=== PATIENT | male | born 1960 | race Caucasian/White ===

== ENCOUNTER 2020-05-26 13:53 | Inpatient (IN) | payer BC ==
--- NOTE | 2020-05-26 14:28 | BHS.RME ---
Substance Use & Tx History - Substance Use History Alcohol Substance amount: one quart Frequency of use: Daily Substance route: Oral Date of Last Use: 05/23/20 Nicotine Substance amount: one pack Frequency of use: Daily Substance route: Smoking Date of Last Use: 05/26/20 - Last Treatment Date of last treatment: one year ago: [facility] Treatment type: Substance Use Disorder (JESUS) Where was last treatment: Detox Physical/Psych/Mental Status - Behavior General Behavior: Decreased activity Eye Contact: Normal - Cooperativeness Cooperativeness: Cooperative - Thinking Thought Processes: Tight Thought content: Future oriented - Physical Health Problems Is patient presently having any pain?: No Does patient presently have any injuries (include location): No Does patient currently have a fever: No CIWA Nausea/Vomitin Muscle Tremors: 4-Moderate,w/Arms Extend Anxiety: 3 Agitation: 1-Slight > Activity Paroxysmal Sweats: No Perspiration Orientation: 2-Disoriented Date<2 days Tacttile Disturbances: 0-None Auditory Disturbances: 0-None Visual Disturbances: 0-None Headache: 0-None Present CIWA-Ar Total Score: 12
[2020-05-26 14:41] VITALS: BMI 16.1
--- NOTE | 2020-05-26 15:04 | HP ---
CIWA Score Nausea/Vomitin Muscle Tremors: 4-Moderate,w/Arms Extend Anxiety: 3 Agitation: 1-Slight > Activity Paroxysmal Sweats: No Perspiration Orientation: 2-Disoriented Date<2 days Tacttile Disturbances: 0-None Auditory Disturbances: 0-None Visual Disturbances: 0-None Headache: 0-None Present CIWA-Ar Total Score: 12 - Admission Criteria OASAS Guidelines: Admission for Medically Managed Detox: Requires at least one of the followin. CIWA greater than 12 2. Seizures within the past 24 hours 3. Delirium tremens within the past 24 hours 4. Hallucinations within the past 24 hours 5. Acute intervention needed for co occurring medical disorder 6. Acute intervention needed for co occurring psychiatric disorder 7. Severe withdrawal that cannot be handled at a lower level of care (continued vomiting, continued diarrhea, abnormal vital signs) requiring intravenous medication and/or fluids 8. Admitting History and Physical - Smoking History Smoking history: Current every day smoker Have you smoked in the past 12 months: Yes Aproximately how many cigarettes per day: 20 Admission ROS [facility] Chief Complaint: alcohol detox Allergies/Adverse Reactions: Allergies Allergy/AdvReac Type Severity Reaction Status Date / Time pollen extracts Allergy Intermediate Difficulty Verified 05/26/20 14:42 Breathing History of Present Illness: Patient is a 59 y/o male with no past medical history who presents for detox from alcohol. Patient started drinking in his late teens, patient last drink was three days ago. Patient typically drinks a quart of vodka daily. Patient denies seizures, possibly has blacked out from alcohol, Needs an eye cafeteria helper. Patient smokes 1 pack of cigarettes a day. Patient has done rehab ~5 times in the past, was sober for 10 years at one point. Substance Use & Tx History - Substance Use History Alcohol Substance amount: one quart Frequency of use: Daily Substance route: Oral Date of Last Use: 05/23/20 Nicotine Substance amount: one pack Frequency of use: Daily Substance route: Smoking Date of Last Use: 05/26/20 - Last Treatment Date of last treatment: one year ago: [facility] Treatment type: Substance Use Disorder (JESUS) Where was last treatment: Detox [facility]: plate in chin psych: none Patient is admitted for alcohol detox with a CIWA of 12. - Ebola screening Have you traveled outside of the country in the last 21 days: No Have you had contact with anyone from an Ebola affected area: No Have you been sick,other than usual withdrawal symptoms: No Do you have a fever: No - Review of Systems Constitutional: Other (denies: chills and fever) EENT: denies: Blurred Vision, Double Vision, Tinnitus Respiratory: denies: Cough, Shortness of Breath, Wheezing Cardiac: denies: Chest Pain, Chest Tightness GI: reports: Diarrhea. denies: Constipated, Nausea, Vomiting : denies: Burning Musculoskeletal: denies: Back Pain, Muscle Pain Integumentary: denies: Bruising Neuro: denies: Headache, Numbness, Tingling, Dizziness Endocrine: denies: Unexplained Weight Gain Hematology: denies: Anemia Psychiatric: reports: Anxious Patient History - Patient Medical History Hx Asthma: No Hx Cardiac Disorders: No Hx Diabetes: No Hx Gastrointestinal Disorders: No Hx Sexually Transmitted Disorders: No Hx Renal Disease (ESRD): No - Patient Surgical History Past Surgical History: Yes Hx Neurologic Surgery: No Hx Cataract Extraction: No Hx Cardiac Surgery: No Hx Lung Surgery: No Hx Breast Surgery: No Hx Breast Biopsy: No Hx Abdominal Surgery: No Hx Appendectomy: No Hx Cholecystectomy: No Hx Genitourinary Surgery: No Hx Section: No Hx Orthopedic Surgery: No - PPD History Previous Implant?: No Documented Results: Negative w/o proof - Smoking Cessation Smoking history: Current every day smoker Have you smoked in the past 12 months: Yes Aproximately how many cigarettes per day: 20 Cigars Per Day: 0 Hx Chewing Tobacco Use: No Initiated information on smoking cessation: Yes 'Breaking Loose' booklet given: 05/26/20 - Substances abused Alcohol Substance route: Oral Frequency: Daily Amount used: quart of vodka Age of first use: 17 Date of last use: 05/23/20 Admission Physical Exam BHS - Vital Signs Vital Signs: Vital Signs - 24 hr 05/26/20 05/26/20 14:39 14:44 Temperature 97.7 F 97.7 F Pulse Rate 114 H 114 H Respiratory 16 16 Rate Blood Pressure 149/89 149/89 - Physical General Appearance: Yes: No Apparent Distress, Thin HEENTM: Yes: Hearing grossly Normal, Normocephalic Respiratory: Yes: Chest Non-Tender, Decreased Breath Sounds, No Respiratory Distress Neck: Yes: Within Normal Limits Cardiology: Yes: Within Normal Limits, Regular Rhythm, Regular Rate Abdominal: Yes: Non Tender, Flat, Soft Genitourinary: Yes: Within Normal Limits Back: Yes: Normal Inspection Musculoskeletal: Yes: full range of Motion, Gait Steady Extremities: Yes: Normal Range of Motion, Non-Tender Neurological: Yes: Fully Oriented, Normal Mood/Affect, Normal Response Integumentary: Yes: Normal Color - Diagnostic (1) Alcohol dependence with withdrawal Current Visit: Yes Status: Acute (2) Nicotine dependence Current Visit: Yes Status: Acute Cleared for Admission S - Detox or Rehab [facility] Level of Care: Medically Managed Detox Regimen/Protocol: Librium Breathalyzer - Breathalyzer Breathalyzer: 0 Vital Signs - Vital Signs Vital signs refused: No Temperature: 97.7 F Temperature source: Oral Pulse Rate: 114 Respiratory Rate: 16 Blood Pressure: 149/89 - Height Height: 5 ft 8 in - Weight Weight: 48.081 kg - BMI Body Mass Index (BMI): 16.1 Urine Drug Screen - Test Device Lot number: [id number] Expiration date: 12/18/21 - Control Is test valid?: Yes - Results Drug screen NEGATIVE: No Urine drug screen results: MTD-Methadone Inpatient Rehab Admission - Rehab Decision to Admit Inpatient rehab admission?: No
[2020-05-26] MEDS ORDERED: ONDANSETRON *ODT* 4 MG TABLET SL PRN (15:05)
[2020-05-26] MEDS ORDERED: MENTHOL/PHENOL 1 EACH UD MM PRN (15:05)
[2020-05-26] MEDS ORDERED: NICOTINE POLACRILEX 2 MG GUM BUC PRN (15:05)
[2020-05-26] MEDS ORDERED: IBUPROFEN 400 MG TABLET (FP) PO PRN (15:05)
[2020-05-26] MEDS ORDERED: ACETAMINOPHEN 325 MG TABLET (FP) PO PRN ×2 (15:05)
[2020-05-26] MEDS ORDERED: METHOCARBAMOL 500 MG TABLET PO PRN (15:05)
[2020-05-26] MEDS ORDERED: chlordiazePOXIDE HCL 25 MG CAPSULE PO PRN (15:05)
[2020-05-26] MEDS ORDERED: BISMUTH SUBSALICYLATE 262 MG/15 ML BTL PO PRN (15:05)
[2020-05-26] MEDS ORDERED: MAGNESIUM HYDROX 2400MG/30ML ORAL SUSPENSION 30 ML CUP PO PRN (15:05)
[2020-05-26] MEDS ORDERED: MAGNESIUM CITRATE 300 ML BOTTLE PO PRN (15:05)
[2020-05-26] MEDS ORDERED: MAG HYDROX/AL HYDROX/SIMETH 30 ML UNIT-DOSE CUP PO PRN (15:05)
[2020-05-26] MEDS: NICOTINE 21 MG/24 HOURS TOPICAL PATCH TD SCH (15:59)
[2020-05-26] MEDS: PRENATAL VITAMINS W/ FOLIC ACID TABLET (FP) PO SCH (16:01)
[2020-05-26] MEDS: chlordiazePOXIDE HCL 25 MG CAPSULE PO SCH ×2 (16:03→22:23)
[2020-05-26] MEDS: hydrOXYzine PAMOATE 25 MG CAPSULE (FP) PO SCH ×2 (17:34→22:23)
[2020-05-26] MEDS: THIAMINE HCL 100 MG TABLET (FP) PO SCH (22:23)
--- NOTE | 2020-05-26 22:45 | PN ---
BHS Progress Note Note: Vital Signs - 24 hr 05/26/20 05/26/20 05/26/20 14:39 14:44 16:02 Temperature 97.7 F 97.7 F 98.0 F Pulse Rate 114 H 114 H 129 H Respiratory 16 16 18 Rate Blood Pressure 149/89 149/89 146/98 O2 Sat by Pulse 99 Oximetry (%) 05/26/20 05/26/20 05/26/20 17:21 17:29 21:07 Temperature 97.7 F 99.6 F 98.6 F Pulse Rate 114 H 125 H 116 H Respiratory 16 16 16 Rate Blood Pressure 149/89 118/79 112/80 O2 Sat by Pulse 97 97 Oximetry (%) pt w/ abnormal EKG RBBB asymptomatic : denies CP/ dizziness, falls . HR 90 prolonged QTc 486 ms . Pt vehemently denies Methadone use ( utox + MTD ) . Urine Drug Screen - Test Device Lot number: [id number] Expiration date: 12/18/21 - Control Is test valid?: Yes - Results Drug screen NEGATIVE: No Urine drug screen results: MTD-Methadone Advised pt to f/up w/ cardiology Pt verbalized understanding and thanked service writer advisor for information.
[2020-05-26] MEDS: MELATONIN 5 MG TABLETS PO SCH (23:00)
[2020-05-27] MEDS: chlordiazePOXIDE HCL 25 MG CAPSULE PO SCH ×4 (05:12→22:24)
--- NOTE | 2020-05-27 09:05 | PN ---
S CIWA - CIWA Score Nausea/Vomitin-Mild Nausea/No Vomiting Muscle Tremors: 3 Anxiety: 3 Agitation: 2 Paroxysmal Sweats: No Perspiration Orientation: 0-Oriented Tacttile Disturbances: 1-Very Mild Itch/Numbness Auditory Disturbances: 0-None Visual Disturbances: 0-None Headache: 2-Mild CIWA-Ar Total Score: 12 BHS Progress Note (SOAP) Subjective: alert,irritable,anxious,interrupted sleep tremor,aching pain Objective: 05/27/20 16:04 Vital Signs Temperature 97.8 F 05/27/20 12:45 Pulse Rate 123 H 05/27/20 12:45 Respiratory Rate 16 05/27/20 12:45 Blood Pressure 99/72 05/27/20 12:45 O2 Sat by Pulse Oximetry (%) 99 05/27/20 12:45 05/27/20 16:05 Laboratory Last Values WBC 6.3 K/mm3 (4.0-10.0) 05/27/20 08:00 RBC 3.07 M/mm3 (4.00-5.60) L 05/27/20 08:00 Hgb 10.6 GM/dL (11.7-16.9) L 05/27/20 08:00 Hct 32.2 % (35.4-49) L 05/27/20 08:00 MCV 104.8 fl (80-96) H 05/27/20 08:00 MCH 34.6 pg (25.7-33.7) H 05/27/20 08:00 MCHC 33.1 g/dl (32.0-35.9) 05/27/20 08:00 RDW 15.2 % (11.9-15.9) 05/27/20 08:00 Plt Count 229 K/MM3 (134-434) 05/27/20 08:00 MPV 9.1 fl (7.5-11.1) 05/27/20 08:00 Sodium 136 mmol/L (136-145) 05/27/20 08:00 Potassium 4.1 mmol/L (3.5-5.1) 05/27/20 08:00 Chloride 97 mmol/L (98-107) L 05/27/20 08:00 Carbon Dioxide 36 mmol/L (21-32) H 05/27/20 08:00 Anion Gap 4 MMOL/L (8-16) L 05/27/20 08:00 BUN 24.2 mg/dL (7-18) H 05/27/20 08:00 Creatinine 1.0 mg/dL (0.55-1.3) 05/27/20 08:00 Est GFR (CKD-EPI)AfAm 95.06 05/27/20 08:00 Est GFR (CKD-EPI)NonAf 82.02 05/27/20 08:00 Random Glucose 101 mg/dL (74-106) 05/27/20 08:00 Calcium 9.3 mg/dL (8.5-10.1) 05/27/20 08:00 Total Bilirubin 0.7 mg/dL (0.2-1) 05/27/20 08:00 AST 67 U/L (15-37) H 05/27/20 08:00 ALT 70 U/L (13-61) H 05/27/20 08:00 Alkaline Phosphatase 89 U/L (45-117) 05/27/20 08:00 Ammonia 31.70 umol/L (11-32) 05/27/20 14:00 Total Protein 6.9 g/dl (6.4-8.2) 05/27/20 08:00 Albumin 3.8 g/dl (3.4-5.0) 05/27/20 08:00 Syphilis Serology Non-reactive (NONREACTIVE) 05/27/20 08:00 COVID-19 (NIXON) Not detected (Not Detected) 05/26/20 15:15 Assessment: 05/27/20 16:05 withdrawal symptom Plan: continue detox librium regimen
--- NOTE | 2020-05-27 09:29 | EKG ---
Test Reason : Blood Pressure : / mmHG Vent. Rate : 090 BPM Atrial Rate : 090 BPM P-R Int : 168 ms QRS Dur : 142 ms QT Int : 398 ms P-R-T Axes : 061 100 062 degrees QTc Int : 486 ms NORMAL SINUS RHYTHM RIGHT BUNDLE BRANCH BLOCK ABNORMAL ECG NO PREVIOUS ECGS AVAILABLE Confirmed by MD ALEAH, NABEEL ([id number]) on 05/27/2020 9:28:48 AM Referred By: Confirmed By:NABEEL BULLARD MD
[2020-05-27] MEDS: PRENATAL VITAMINS W/ FOLIC ACID TABLET (FP) PO SCH (10:26)
[2020-05-27] MEDS: NICOTINE 21 MG/24 HOURS TOPICAL PATCH TD SCH (10:27)
[2020-05-27 10:36] LABS: ALBUMIN 3.8 g/dl (3.4-5.0); BILIRUBIN,TOTAL 0.7 mg/dL (0.2-1); BLOOD UREA NITROGEN 24.2 mg/dL (7-18); CALCIUM 9.3 mg/dL (8.5-10.1); POTASSIUM 4.1 mmol/L (3.5-5.1); TOT PROT 6.9 g/dl (6.4-8.2)
[2020-05-27 10:40] LABS: HEMATOCRIT 32.2 % (35.4-49); HEMOGLOBIN 10.6 GM/dL (11.7-16.9); MCH 34.6 pg (25.7-33.7); MCHC 33.1 g/dl (32.0-35.9); MEAN CELL VOLUME 104.8 fl (80-96); MEAN PLT VOLUME 9.1 fl (7.5-11.1); PLATELET COUNT 229 K/MM3 (134-434); RBC 3.07 M/mm3 (4.00-5.60); RDW 15.2 % (11.9-15.9); WHITE BLOOD COUNT 6.3 K/mm3 (4.0-10.0)
[2020-05-27] MEDS: THIAMINE HCL 100 MG TABLET (FP) PO SCH (22:24)
[2020-05-27] MEDS: MELATONIN 5 MG TABLETS PO SCH (22:25)
[2020-05-28] MEDS: chlordiazePOXIDE HCL 25 MG CAPSULE PO SCH ×4 (06:19→22:15)
[2020-05-28] MEDS: NICOTINE 21 MG/24 HOURS TOPICAL PATCH TD SCH (10:35)
[2020-05-28] MEDS: PRENATAL VITAMINS W/ FOLIC ACID TABLET (FP) PO SCH (10:35)
--- NOTE | 2020-05-28 12:37 | PN ---
[facility] CIWA - CIWA Score Nausea/Vomitin-Mild Nausea/No Vomiting Muscle Tremors: 1-None Visible, but Potter Anxiety: 2 Agitation: 2 Paroxysmal Sweats: No Perspiration Orientation: 0-Oriented Tacttile Disturbances: 0-None Auditory Disturbances: 0-None Visual Disturbances: 0-None Headache: 2-Mild CIWA-Ar Total Score: 8 S Progress Note (SOAP) Subjective: alert,irritable,anxious,interrupted sleep,aching pain in the bod and back Objective: 05/28/20 13:54 Vital Signs Temperature 96.8 F L 05/28/20 09:02 Pulse Rate 77 05/28/20 09:02 Respiratory Rate 20 05/28/20 09:02 Blood Pressure 98/56 L 05/28/20 09:02 O2 Sat by Pulse Oximetry (%) 97 05/28/20 09:02 Laboratory Last Values WBC 6.3 K/mm3 (4.0-10.0) 05/27/20 08:00 RBC 3.07 M/mm3 (4.00-5.60) L 05/27/20 08:00 Hgb 10.6 GM/dL (11.7-16.9) L 05/27/20 08:00 Hct 32.2 % (35.4-49) L 05/27/20 08:00 MCV 104.8 fl (80-96) H 05/27/20 08:00 MCH 34.6 pg (25.7-33.7) H 05/27/20 08:00 MCHC 33.1 g/dl (32.0-35.9) 05/27/20 08:00 RDW 15.2 % (11.9-15.9) 05/27/20 08:00 Plt Count 229 K/MM3 (134-434) 05/27/20 08:00 MPV 9.1 fl (7.5-11.1) 05/27/20 08:00 Sodium 136 mmol/L (136-145) 05/27/20 08:00 Potassium 4.1 mmol/L (3.5-5.1) 05/27/20 08:00 Chloride 97 mmol/L (98-107) L 05/27/20 08:00 Carbon Dioxide 36 mmol/L (21-32) H 05/27/20 08:00 Anion Gap 4 MMOL/L (8-16) L 05/27/20 08:00 BUN 24.2 mg/dL (7-18) H 05/27/20 08:00 Creatinine 1.0 mg/dL (0.55-1.3) 05/27/20 08:00 Est GFR (CKD-EPI)AfAm 95.06 05/27/20 08:00 Est GFR (CKD-EPI)NonAf 82.02 05/27/20 08:00 Random Glucose 101 mg/dL (74-106) 05/27/20 08:00 Calcium 9.3 mg/dL (8.5-10.1) 05/27/20 08:00 Total Bilirubin 0.7 mg/dL (0.2-1) 05/27/20 08:00 AST 67 U/L (15-37) H 05/27/20 08:00 ALT 70 U/L (13-61) H 05/27/20 08:00 Alkaline Phosphatase 89 U/L (45-117) 05/27/20 08:00 Ammonia 31.70 umol/L (11-32) 05/27/20 14:00 Total Protein 6.9 g/dl (6.4-8.2) 05/27/20 08:00 Albumin 3.8 g/dl (3.4-5.0) 05/27/20 08:00 Syphilis Serology Non-reactive (NONREACTIVE) 05/27/20 08:00 COVID-19 (NIXON) Not detected (Not Detected) 05/26/20 15:15 Assessment: 05/28/20 13:54 withdrawal symptom Plan: continue detox librium regimen
[2020-05-28] MEDS: THIAMINE HCL 100 MG TABLET (FP) PO SCH (22:15)
[2020-05-28] MEDS: MELATONIN 5 MG TABLETS PO SCH (22:15)
[2020-05-29] MEDS ORDERED: chlordiazePOXIDE HCL 10 MG CAPSULE PO PRN
[2020-05-29] MEDS: chlordiazePOXIDE HCL 10 MG CAPSULE PO SCH ×4 (06:40→22:24)
--- NOTE | 2020-05-29 10:32 | PN ---
BHS CIWA - CIWA Score Nausea/Vomitin-No Nausea/No Vomiting Muscle Tremors: 2 Anxiety: 1-Mildly Anxious Agitation: 1-Slight > Activity Paroxysmal Sweats: 1-Minimal Palms Moist Orientation: 0-Oriented Tacttile Disturbances: 0-None Auditory Disturbances: 0-None Visual Disturbances: 0-None Headache: 0-None Present CIWA-Ar Total Score: 5 BHS Progress Note (SOAP) Subjective: sweats shakes Objective: 05/29/20 10:31 Vital Signs Temperature 98.0 F 05/29/20 08:20 Pulse Rate 76 05/29/20 08:20 Respiratory Rate 16 05/29/20 08:20 Blood Pressure 111/65 05/29/20 08:20 O2 Sat by Pulse Oximetry (%) 94 L 05/29/20 05:19 Laboratory Tests 05/26/20 05/27/20 05/27/20 15:15 08:00 08:00 WBC 6.3 RBC 3.07 L Hgb 10.6 L Hct 32.2 L MCV 104.8 H MCH 34.6 H MCHC 33.1 RDW 15.2 Plt Count 229 MPV 9.1 Sodium 136 Potassium 4.1 Chloride 97 L Carbon Dioxide 36 H Anion Gap 4 L BUN 24.2 H Creatinine 1.0 Est GFR (CKD-EPI)AfAm 95.06 Est GFR (CKD-EPI)NonAf 82.02 Random Glucose 101 Calcium 9.3 Total Bilirubin 0.7 AST 67 H ALT 70 H Alkaline Phosphatase 89 Ammonia Total Protein 6.9 Albumin 3.8 Syphilis Serology COVID-19 (NIXON) Not detected 05/27/20 05/27/20 08:00 14:00 WBC RBC Hgb Hct MCV MCH MCHC RDW Plt Count MPV Sodium Potassium Chloride Carbon Dioxide Anion Gap BUN Creatinine Est GFR (CKD-EPI)AfAm Est GFR (CKD-EPI)NonAf Random Glucose Calcium Total Bilirubin AST ALT Alkaline Phosphatase Ammonia 31.70 Total Protein Albumin Syphilis Serology Non-reactive COVID-19 (NIXON) labs noted ambulating no acute distress Assessment: 05/29/20 10:32 withdrawals Plan: continue detox
[2020-05-29] MEDS: NICOTINE 21 MG/24 HOURS TOPICAL PATCH TD SCH (11:00)
[2020-05-29] MEDS: PRENATAL VITAMINS W/ FOLIC ACID TABLET (FP) PO SCH (11:00)
[2020-05-29] MEDS: THIAMINE HCL 100 MG TABLET (FP) PO SCH (22:24)
[2020-05-29] MEDS: MELATONIN 5 MG TABLETS PO SCH (22:24)
[2020-05-30] MEDS: chlordiazePOXIDE HCL 10 MG CAPSULE PO SCH ×2 (05:32→17:39)
--- NOTE | 2020-05-30 10:13 | PN ---
S CIWA - CIWA Score Nausea/Vomitin-No Nausea/No Vomiting Muscle Tremors: 2 Anxiety: 2 Agitation: 1-Slight > Activity Paroxysmal Sweats: No Perspiration Orientation: 0-Oriented Tacttile Disturbances: 0-None Auditory Disturbances: 0-None Visual Disturbances: 0-None Headache: 1-Very Mild CIWA-Ar Total Score: 6 BHS Progress Note (SOAP) Subjective: alert,irritable,interrupted sleep,aching pain Objective: 05/30/20 16:15 Vital Signs Temperature 98.6 F 05/30/20 12:57 Pulse Rate 82 05/30/20 12:57 Respiratory Rate 16 05/30/20 12:57 Blood Pressure 114/65 05/30/20 12:57 O2 Sat by Pulse Oximetry (%) 98 05/30/20 12:57 Assessment: 05/30/20 16:15 withdrawal symptom Plan: continue detox librium regimen,discharge in am
[2020-05-30] MEDS: NICOTINE 21 MG/24 HOURS TOPICAL PATCH TD SCH (10:28)
[2020-05-30] MEDS: PRENATAL VITAMINS W/ FOLIC ACID TABLET (FP) PO SCH (10:28)
[2020-05-30] MEDS: THIAMINE HCL 100 MG TABLET (FP) PO SCH (22:21)
[2020-05-30] MEDS: MELATONIN 5 MG TABLETS PO SCH (22:22)
[2020-05-31] MEDS ORDERED: chlordiazePOXIDE HCL 10 MG CAPSULE PO ONE (05:00)
--- NOTE | 2020-05-31 09:45 | DS ---
[facility] Detox Discharge Summary Admission Date: 05/26/20 Discharge Date: 05/31/20 - History Present History: Alcohol Dependence Additional Comments: Patient was seen and examined during rounds. Alert and oriented x 3, in no acute distress. Full ROM, ambulating in the unit without assistance. Skin was to touch with any lesions. Detox protocol completed without any adverse side effects, patient stable for discharge home this morning. Pertinent Past History: History of alcohol and nicotine use disorder. - Physical Exam Results Vital Signs: Vital Signs Temperature 96.9 F L 05/31/20 05:12 Pulse Rate 72 05/31/20 05:12 Respiratory Rate 18 05/31/20 05:12 Blood Pressure 127/65 05/31/20 05:12 O2 Sat by Pulse Oximetry (%) 97 05/31/20 05:12 Vital Signs 05/31/20 05:12 Temperature 96.9 F L Pulse Rate 72 Respiratory 18 Rate Blood Pressure 127/65 O2 Sat by Pulse 97 Oximetry (%) Laboratory Last Values WBC 6.3 K/mm3 (4.0-10.0) 05/27/20 08:00 RBC 3.07 M/mm3 (4.00-5.60) L 05/27/20 08:00 Hgb 10.6 GM/dL (11.7-16.9) L 05/27/20 08:00 Hct 32.2 % (35.4-49) L 05/27/20 08:00 MCV 104.8 fl (80-96) H 05/27/20 08:00 MCH 34.6 pg (25.7-33.7) H 05/27/20 08:00 MCHC 33.1 g/dl (32.0-35.9) 05/27/20 08:00 RDW 15.2 % (11.9-15.9) 05/27/20 08:00 Plt Count 229 K/MM3 (134-434) 05/27/20 08:00 MPV 9.1 fl (7.5-11.1) 05/27/20 08:00 Sodium 136 mmol/L (136-145) 05/27/20 08:00 Potassium 4.1 mmol/L (3.5-5.1) 05/27/20 08:00 Chloride 97 mmol/L (98-107) L 05/27/20 08:00 Carbon Dioxide 36 mmol/L (21-32) H 05/27/20 08:00 Anion Gap 4 MMOL/L (8-16) L 05/27/20 08:00 BUN 24.2 mg/dL (7-18) H 05/27/20 08:00 Creatinine 1.0 mg/dL (0.55-1.3) 05/27/20 08:00 Est GFR (CKD-EPI)AfAm 95.06 05/27/20 08:00 Est GFR (CKD-EPI)NonAf 82.02 05/27/20 08:00 Random Glucose 101 mg/dL (74-106) 05/27/20 08:00 Calcium 9.3 mg/dL (8.5-10.1) 05/27/20 08:00 Total Bilirubin 0.7 mg/dL (0.2-1) 05/27/20 08:00 AST 67 U/L (15-37) H 05/27/20 08:00 ALT 70 U/L (13-61) H 05/27/20 08:00 Alkaline Phosphatase 89 U/L (45-117) 05/27/20 08:00 Ammonia 31.70 umol/L (11-32) 05/27/20 14:00 Total Protein 6.9 g/dl (6.4-8.2) 05/27/20 08:00 Albumin 3.8 g/dl (3.4-5.0) 05/27/20 08:00 Syphilis Serology Non-reactive (NONREACTIVE) 05/27/20 08:00 COVID-19 ([facility]IXON) Not detected (Not Detected) 05/26/20 15:15 Labs noted. Pertinent Admission Physical Exam Findings: Withdrawal symptoms. - Treatment Hospital Course: Detox Protocol Followed, Detoxed Safely, Responded well, Discharged Condition Good - Medication Discharge Medications: Ambulatory Orders NK [No Known Home Medication] 05/26/20 - Diagnosis (1) Alcohol dependence with withdrawal Current Visit: Yes Status: Acute (2) Nicotine dependence Current Visit: Yes Status: Chronic - AMA Did Patient Leave Against Medical Advice: No
[2020-05-31 09:53] VITALS: BP 120/70; PULSE 99; TEMP 98.2
== END 2020-05-31 11:06 | disposition home or self-care (01) | DRG 775 ==
LOC: SUATTDRO 13:53 → YASAS 13:53 → Y6N 14:53
PROVIDERS: ADMIT Allergy & Immunology; ATTEND Allergy & Immunology
PROC: HZ2ZZZZ Detoxification Services for Substance Abuse Treatment (ICD-10-PCS; principal; 2020-05-26)
DX: F10.230 Alcohol dependence with withdrawal, uncomplicated (principal); F17.210 Nicotine dependence, cigarettes, uncomplicated; I45.81 Long QT syndrome; I45.19 Other right bundle-branch block
CPT/HCPCS: 36415; 80053; 82140; 85027; 86780; 93005; 93010; U0003

== ENCOUNTER 2023-07-31 14:19 | Inpatient (IN) | payer OTHER ==
[2023-07-31 14:47] VITALS: BMI 17.6
[2023-07-31] MEDS ORDERED: ACETAMINOPHEN 325 MG TABLET (FP) PO PRN (15:44)
[2023-07-31] MEDS ORDERED: BISMUTH SUBSALICYLATE 524 MG/30 ML PO PRN (15:44)
[2023-07-31] MEDS ORDERED: hydrOXYzine PAMOATE 25 MG CAPSULE (FP) PO PRN (15:44)
[2023-07-31] MEDS ORDERED: DICYCLOMINE HCL 10 MG CAPSULE PO PRN (15:44)
[2023-07-31] MEDS ORDERED: POLYETHYLENE GLYCOL (HEALTHYLAX) 3350 17 GM PACKET PO PRN (15:44)
[2023-07-31] MEDS ORDERED: MAGNESIUM HYDROX 2400MG/30ML ORAL SUSPENSION 30 ML CUP PO PRN (15:44)
[2023-07-31] MEDS ORDERED: NALOXONE HCL 0.4 MG/ML VIAL IM PRN (15:44)
[2023-07-31] MEDS ORDERED: LOPERAMIDE HCL 2 MG CAPSULE PO PRN (15:44)
[2023-07-31] MEDS ORDERED: IBUPROFEN 400 MG TABLET (FP) PO PRN (15:44)
[2023-07-31] MEDS ORDERED: NALOXONE HCL (KLOXXADO) 8 MG SPRAY NS PRN (15:44)
[2023-07-31] MEDS ORDERED: BENZOCAINE/MENTHOL (CHLORASEPTIC ) LOZENGE MM PRN (15:44)
[2023-07-31] MEDS ORDERED: ONDANSETRON *ODT* 4 MG TABLET SL PRN (15:44)
[2023-07-31] MEDS ORDERED: BENZONATATE 200 MG CAPSULE PO PRN (15:44)
[2023-07-31] MEDS ORDERED: MAG HYDROX/AL HYDROX/SIMETH 30 ML UNIT-DOSE CUP PO PRN (15:44)
[2023-07-31] MEDS ORDERED: guaiFENesin 600 MG TABLET.ER (FP) PO PRN (15:44)
[2023-07-31] MEDS ORDERED: chlordiazePOXIDE HCL 25 MG CAPSULE PO PRN (15:44)
[2023-07-31] MEDS ORDERED: IBUPROFEN 600 MG TABLET (FP) PO PRN (15:44)
[2023-07-31] MEDS: chlordiazePOXIDE HCL 25 MG CAPSULE PO SCH ×2 (16:37→22:27)
[2023-07-31] MEDS: THIAMINE HCL 100 MG TABLET (FP) PO SCH (22:27)
[2023-07-31] MEDS: ATORVASTATIN CA 80 MG TABLET (FP) PO SCH (22:27)
[2023-07-31] MEDS: MELATONIN 5 MG TABLETS PO SCH (22:28)
[2023-08-01] MEDS: chlordiazePOXIDE HCL 25 MG CAPSULE PO SCH ×4 (05:52→22:47)
[2023-08-01] MEDS: ASPIRIN 81 MG CHEWABLE TABLETS PO SCH (10:21)
[2023-08-01] MEDS: metoPROLOL SUCCINATE 25 MG TAB.SR.24H (FP) PO SCH (10:22)
[2023-08-01] MEDS: PRENATAL VITAMINS W/ FOLIC ACID TABLET (FP) PO SCH (10:22)
[2023-08-01] MEDS: NICOTINE 21 MG/24 HOURS TOPICAL PATCH TD SCH (10:22)
[2023-08-01 10:48] LABS: HEMATOCRIT 34.1 % (35.4-49); HEMOGLOBIN 11.7 GM/dL (11.7-16.9); MCH 33.2 pg (25.7-33.7); MCHC 34.2 g/dl (32.0-35.9); MEAN PLT VOLUME 8.2 fl (7.5-11.1); PLATELET COUNT 222 10^3/uL (134-434); RBC 3.52 M/mm3 (4.00-5.60); RDW 14.2 % (11.9-15.9); WHITE BLOOD COUNT 6.6 K/mm3 (4.0-10.0)
[2023-08-01 10:49] LABS: CHLORIDE 101 mmol/L (98-107); POTASSIUM 3.7 mmol/L (3.5-5.1); SODIUM 138 mmol/L (136-145)
[2023-08-01 10:59] LABS: CALCIUM 8.8 mg/dL (8.5-10.1)
[2023-08-01 11:00] LABS: ALBUMIN 3.5 g/dl (3.4-5.0); ANION GAP 6 mmol/L (4-13); BLOOD UREA NITROGEN 16.3 mg/dL (7-18); CO2 30 mmol/L (21-32); GLUCOSE,RANDOM 134 mg/dL (74-106)
[2023-08-01 11:03] LABS: CREATININE 0.8 mg/dL (0.55-1.3); SGOT/AST 31 U/L (15-37); SGPT/ALT 50 U/L (13-61); TOT PROT 6.2 g/dl (6.4-8.2)
[2023-08-01 11:05] LABS: ALK PHOS 69 U/L (45-117); BILIRUBIN,TOTAL 1.1 mg/dL (0.2-1)
[2023-08-01] MEDS: THIAMINE HCL 100 MG TABLET (FP) PO SCH (22:46)
[2023-08-01] MEDS: ATORVASTATIN CA 80 MG TABLET (FP) PO SCH (22:46)
[2023-08-01] MEDS: MELATONIN 5 MG TABLETS PO SCH (22:49)
[2023-08-02] MEDS: chlordiazePOXIDE HCL 25 MG CAPSULE PO SCH ×4 (05:19→22:21)
[2023-08-02] MEDS: METHOCARBAMOL 500 MG TABLET PO PRN ×2 (10:08→22:21)
[2023-08-02] MEDS: ASPIRIN 81 MG CHEWABLE TABLETS PO SCH (10:08)
[2023-08-02] MEDS: PRENATAL VITAMINS W/ FOLIC ACID TABLET (FP) PO SCH (10:08)
[2023-08-02] MEDS: NICOTINE 21 MG/24 HOURS TOPICAL PATCH TD SCH (10:09)
[2023-08-02] MEDS: metoPROLOL SUCCINATE 25 MG TAB.SR.24H (FP) PO SCH (10:10)
[2023-08-02] MEDS: MELATONIN 5 MG TABLETS PO SCH (22:21)
[2023-08-02] MEDS: ATORVASTATIN CA 80 MG TABLET (FP) PO SCH (22:21)
[2023-08-02] MEDS: THIAMINE HCL 100 MG TABLET (FP) PO SCH (22:21)
[2023-08-03] MEDS ORDERED: chlordiazePOXIDE HCL 10 MG CAPSULE PO PRN
[2023-08-03] MEDS: chlordiazePOXIDE HCL 10 MG CAPSULE PO SCH ×4 (05:27→22:09)
[2023-08-03 08:42] LABS: PH,URINE 6.5 (5.0-8.0); URINE APPEARANCE CLEAR; URINE BILIRUBIN NEGATIVE (NEGATIVE); URINE COLOR YELLOW; URINE GLUCOSE (UA) NEGATIVE (NEGATIVE); URINE KETONE NEGATIVE (NEGATIVE); URINE LEUK ESTERASE NEGATIVE (NEGATIVE); URINE NITRITE NEGATIVE (NEGATIVE); URINE PROTEIN NEGATIVE (NEGATIVE); URINE UROBILINOGEN 0.2 mg/dL (0.2-1.0)
[2023-08-03] MEDS: ASPIRIN 81 MG CHEWABLE TABLETS PO SCH (10:18)
[2023-08-03] MEDS: PRENATAL VITAMINS W/ FOLIC ACID TABLET (FP) PO SCH (10:18)
[2023-08-03] MEDS: metoPROLOL SUCCINATE 25 MG TAB.SR.24H (FP) PO SCH (10:18)
[2023-08-03] MEDS: NICOTINE 21 MG/24 HOURS TOPICAL PATCH TD SCH (10:19)
[2023-08-03] MEDS: THIAMINE HCL 100 MG TABLET (FP) PO SCH (22:09)
[2023-08-03] MEDS: ATORVASTATIN CA 80 MG TABLET (FP) PO SCH (22:09)
[2023-08-03] MEDS: MELATONIN 5 MG TABLETS PO SCH (22:10)
[2023-08-04] MEDS: chlordiazePOXIDE HCL 10 MG CAPSULE PO SCH ×2 (05:28→17:05)
[2023-08-04] MEDS: ASPIRIN 81 MG CHEWABLE TABLETS PO SCH (10:09)
[2023-08-04] MEDS: metoPROLOL SUCCINATE 25 MG TAB.SR.24H (FP) PO SCH (10:09)
[2023-08-04] MEDS: NICOTINE 21 MG/24 HOURS TOPICAL PATCH TD SCH (10:09)
[2023-08-04] MEDS: PRENATAL VITAMINS W/ FOLIC ACID TABLET (FP) PO SCH (10:10)
[2023-08-04] MEDS: METHOCARBAMOL 500 MG TABLET PO PRN ×2 (10:10→22:14)
[2023-08-04] MEDS: THIAMINE HCL 100 MG TABLET (FP) PO SCH (22:14)
[2023-08-04] MEDS: MELATONIN 5 MG TABLETS PO SCH (22:14)
[2023-08-04] MEDS: ATORVASTATIN CA 80 MG TABLET (FP) PO SCH (22:14)
[2023-08-05] MEDS ORDERED: chlordiazePOXIDE HCL 10 MG CAPSULE PO ONE (05:00)
[2023-08-05 05:32] VITALS: RESP 18
[2023-08-05 08:42] VITALS: BP 107/65; PULSE 84; TEMP 97.7
[2023-08-05] MEDS: ASPIRIN 81 MG CHEWABLE TABLETS PO SCH (09:03)
[2023-08-05] MEDS: PRENATAL VITAMINS W/ FOLIC ACID TABLET (FP) PO SCH (09:03)
[2023-08-05] MEDS: metoPROLOL SUCCINATE 25 MG TAB.SR.24H (FP) PO SCH (09:03)
[2023-08-05] MEDS: NICOTINE 21 MG/24 HOURS TOPICAL PATCH TD SCH (09:04)
== END 2023-08-05 09:10 | disposition home or self-care (01) | DRG 775 ==
LOC: YASAS 14:19 → SUATTDRO 14:19 → Y6N 16:15
PROVIDERS: ADMIT Allergy & Immunology; ATTEND Surgery
PROC: HZ2ZZZZ Detoxification Services for Substance Abuse Treatment (ICD-10-PCS; principal; 2023-07-31)
DX: F10.230 Alcohol dependence with withdrawal, uncomplicated (principal); F17.210 Nicotine dependence, cigarettes, uncomplicated; E78.5 Hyperlipidemia, unspecified; I10 Essential (primary) hypertension; R46.0 Very low level of personal hygiene
CPT/HCPCS: 36415; 80053; 80307; 81003; 82947; 83036; 85027; 86780; 87635; 87811; 93005; 93010

== ENCOUNTER 2025-07-04 14:06 | Inpatient (IN) | payer OTHER ==
[2025-07-04] MEDS ORDERED: POLYETHYLENE GLYCOL (HEALTHYLAX) 3350 17 GM PACKET PO PRN (14:46)
[2025-07-04] MEDS ORDERED: MAGNESIUM HYDROX 2400MG/30ML ORAL SUSPENSION 30 ML CUP PO PRN (14:46)
[2025-07-04] MEDS ORDERED: guaiFENesin 600 MG TABLET.ER (FP) PO PRN (14:46)
[2025-07-04] MEDS ORDERED: LOPERAMIDE HCL 2 MG CAPSULE PO PRN (14:46)
[2025-07-04] MEDS ORDERED: IBUPROFEN 400 MG TABLET (FP) PO PRN (14:46)
[2025-07-04] MEDS ORDERED: BENZOCAINE/MENTHOL (CHLORASEPTIC ) LOZENGE MM PRN (14:46)
[2025-07-04] MEDS ORDERED: BENZONATATE 200 MG CAPSULE PO PRN (14:46)
[2025-07-04] MEDS ORDERED: IBUPROFEN 600 MG TABLET (FP) PO PRN (14:46)
[2025-07-04] MEDS ORDERED: DICYCLOMINE HCL 10 MG CAPSULE PO PRN (14:46)
[2025-07-04] MEDS ORDERED: METHOCARBAMOL 500 MG TABLET PO PRN (14:46)
[2025-07-04] MEDS ORDERED: ACETAMINOPHEN 325 MG TABLET (FP) PO PRN (14:46)
[2025-07-04] MEDS ORDERED: hydrOXYzine PAMOATE 25 MG CAPSULE (FP) PO PRN (14:46)
[2025-07-04] MEDS ORDERED: MAG HYDROX/AL HYDROX/SIMETH 30 ML UNIT-DOSE CUP PO PRN (14:46)
[2025-07-04] MEDS ORDERED: NALOXONE (NARCAN) HCL 4 MG/0.1 ML SPRAY NS PRN (14:46)
[2025-07-04] MEDS ORDERED: BISMUTH SUBSALICYLATE 524 MG/30 ML PO PRN (14:46)
[2025-07-04 15:05] VITALS: BMI 17.4
[2025-07-04] MEDS: NALTREXONE HCL 50 MG TABLET PO ONE (18:11)
[2025-07-04] MEDS: PRENATAL VITAMINS W/ FOLIC ACID TABLET (FP) PO SCH (18:11)
[2025-07-04] MEDS: THIAMINE 100 MG TABLET PO SCH (22:19)
[2025-07-04] MEDS: MELATONIN 5 MG TABLETS PO SCH (22:20)
[2025-07-04] MEDS: ATORVASTATIN CA 80 MG TABLET (FP) PO SCH (22:20)
[2025-07-05] MEDS: ASPIRIN 81 MG CHEWABLE TABLETS PO SCH (10:59)
[2025-07-05] MEDS: NALTREXONE HCL 50 MG TABLET PO SCH (11:00)
[2025-07-05 12:34] LABS: MCHC 29.9 g/dl (32.3-36.5); MEAN CELL VOLUME 99.4 fl (79.0-92.2); MEAN PLT VOLUME 10.2 fl (9.4-12.4); RDW 13.9 % (12.2-16.4)
[2025-07-05 12:47] LABS: GLUCOSE,RANDOM 112 mg/dL (74-106)
[2025-07-05 12:48] LABS: TOT PROT 7.2 g/dl (6.4-8.2)
[2025-07-05 12:49] LABS: CO2 26 mmol/L (21-32)
[2025-07-05 12:50] LABS: ALK PHOS 84 U/L (40-150)
[2025-07-05 12:53] LABS: CREATININE 0.66 mg/dL (0.55-1.3); SGOT/AST 21 U/L (5-34); SGPT/ALT 12 U/L (0-55)
[2025-07-06] MEDS: ONDANSETRON *ODT* 4 MG TABLET SL PRN (10:24)
[2025-07-08] MEDS: NALTREXONE HCL 50 MG TABLET PO SCH (14:21)
[2025-07-09 06:57] VITALS: RESP 16
[2025-07-09 08:53] VITALS: BP 115/73; PULSE 76; TEMP 97.9
== END 2025-07-09 12:05 | disposition other institution (70) | DRG 775 ==
LOC: YASAS 14:06 → Y6N 17:35
PROVIDERS: ADMIT Neuromusculoskeletal Medicine & OMM; ATTEND Student in an Organized Health Care Education/Training Program
PROC: HZ2ZZZZ Detoxification Services for Substance Abuse Treatment (ICD-10-PCS; principal; 2025-07-04)
DX: F10.230 Alcohol dependence with withdrawal, uncomplicated (principal); F17.210 Nicotine dependence, cigarettes, uncomplicated; F10.282 Alcohol dependence with alcohol-induced sleep disorder; I25.10 Atherosclerotic heart disease of native coronary artery without angina pectoris; I10 Essential (primary) hypertension; E78.5 Hyperlipidemia, unspecified; Z59.02 Unsheltered homelessness
CPT/HCPCS: 36415; 80053; 80305; 80307; 85027; 86780; 93005; 93010; Q0162